=== PATIENT | female | born 1990 | race Caucasian/White ===

== ENCOUNTER 2018-08-05 05:01 | Inpatient (IN) | payer OTHER ==
[2018-08-05 05:51] VITALS: BMI 25.8
[2018-08-05] MEDS ORDERED: Fentanyl 4 mcg/Bup 0.1% Cadd 100 ML ONE (06:28)
[2018-08-05] MEDS ORDERED: Lactated Ringer's 1,000 ML IV SCH (06:31)
[2018-08-05] MEDS ORDERED: Ondansetron PF 4 MG/2 ML Vial IVP PRN ×3 (06:31→12:44)
[2018-08-05] MEDS ORDERED: Butorphanol Tartrate 1 MG/ML VIAL SLOW IVP PRN (06:31)
[2018-08-05] MEDS ORDERED: Promethazine HCl 25 MG/ML VIAL IM PRN ×2 (06:31→07:02)
[2018-08-05 06:32] LABS: Mean Corpuscular HGB CONC 33.4 g/dL (32.0-36.0); Mean Corpuscular Hemoglobin 27.8 pg (27.0-31.0); Mean Corpuscular Volume 83.3 fL (78.0-98.0); Mean Platelet Volume 10.4 fL (7.4-10.4); Platelet Count 172 thou/uL (130-400); RBC Distribution Width 12.6 % (11.5-14.5); Red Blood Cell (RBC) Count 4.66 mill/uL (4.20-5.40); White Blood Cell (WBC) Count 9.4 thou/uL (4.8-10.8)
[2018-08-05] MEDS ORDERED: Lidocaine 1% (PF) 30 ML VIAL SC PRN (06:45)
[2018-08-05] MEDS ORDERED: NS w/ Oxytocin 10 units 500 ML IV SCH ×2 (06:45)
[2018-08-05] MEDS ORDERED: Acetaminophen 325 MG TAB PO PRN (07:02)
[2018-08-05] MEDS ORDERED: ePHEDrine/0.9% NaCl/PF SYRINGE 50 mg/10 ml SLOW IVP PRN (07:02)
[2018-08-05] MEDS ORDERED: Eucerin (Mineral Oil/Petrolatum,White) 30 gm Jar TOP PRN (07:02)
[2018-08-05] MEDS ORDERED: Lactated Ringer's 500 ML IV PRN (07:02)
[2018-08-05] MEDS ORDERED: Naloxone HCl 0.4 mg/ml Vial IVP PRN ×2 (07:02)
[2018-08-05] MEDS ORDERED: diphenhydrAMINE 50 MG/ML VIAL IVP PRN (07:02)
[2018-08-05 07:13] LABS: HBSAg Index 0.36 S/CO (0-0.99); Hep B Surf Ag Non-Reactive S/CO (NonReactive); Syphilis Antibody Nonreactive (Nonreactive); Syphilis Antibody Index 0.03 S/CO (<1.00 Non-Reactive)
[2018-08-05] MEDS ORDERED: Communication Order-Pharmacy FS SCH (07:15)
[2018-08-05] MEDS ORDERED: Fentanyl 4 mcg/Bupivacaine 0.1% Cassette 100 ML EPIDURAL SCH (07:15)
--- NOTE | 2018-08-05 08:10 | PDOC.LDHP ---
Labor and Delivery H&P Chief complaint: contractions HPI: 27yo A1 at 38w0d by LMP c/o contractions since last night at 11pm. No other complaints. Current gestational age (weeks): 38 Due date: 08/19/18 Dating criteria: last menstrual period Grav: 3 Para: 1 Current complications: gestational diabetes (diet controlled) Abnormal US findings: No Past Medical History: denies Current medications: pre-aleksandr vitamins Previous surgical history: other (wrist surgery) Allergies/Adverse Reactions: Allergies Allergy/AdvReac Type Severity Reaction Status Date / Time No Known Allergies Allergy Unverified 08/05/18 05:53 Social history: none - Physical Exam Vital signs reviewed and normal: yes General: NAD Heart: RRR Lungs: CTAB Abdomen: gravid Extremeties: no edema FHT: category 1 [place] contractions every: 4-5min - Vaginal Exam cm dilated: 7 Effacement: 75% Station: -1 (arom clear) - OB Labs Blood type: O RH: positive Antibody Screen: negative HIV: negative RPR: negative HEPSAg: negative 1 hour GCT: positive 3 hour GTT: postitive GBS: negative Urine drug screen: negative Rubella: immune - Assessment L&D Assessment: term patient in labor - Plan Plan: admit to L&D, labor augmentation if indicated, informed consent obtained, anesthesia consult for pain management -: accuchecks for GDM
[2018-08-05] MEDS ORDERED: Bupivacaine/Epinephrine 0.25% 30 ML VIAL ONE (10:00)
[2018-08-05] MEDS: NS / Oxytocin 40 units/1000ml 1,000 ML IV SCH ×2 (10:20→11:00)
--- NOTE | 2018-08-05 10:22 | PDOC.OPDEL ---
OB Operative/Delivery Note Delivery Dr/Surgeon: [place] Assist: n/a Pre-Delivery Diagnosis: active labor Procedure/Post Delivery Dx: spontaneous vaginal delivery Weeks gestation: 38 Anesthesia: epidural - Findings A Sex: male - 1 min: 9 - 5 min: 9 - Additional Findings/Plan Placenta delivered: spontaneous Repaired Obstetrical Laceration: none Estimated blood loss: 100cc Post delivery plan: routine recovery
[2018-08-05] MEDS ORDERED: Milk Of Magnesia 30 ML UDCUP PO PRN (12:44)
[2018-08-05] MEDS ORDERED: NS / Oxytocin 40 units/1000ml 1,000 ML IV SCH (12:44)
[2018-08-05] MEDS ORDERED: diphenhydrAMINE 25 MG CAP PO PRN (12:44)
[2018-08-05] MEDS ORDERED: Benzocaine-Menthol 82.5 ML CAN TOP PRN (12:44)
[2018-08-05] MEDS ORDERED: Preparation H Ointment 28 GM TUBE PR PRN (12:44)
[2018-08-05] MEDS ORDERED: Bisacodyl 10 MG SUPP PR PRN (12:44)
[2018-08-05] MEDS ORDERED: HYDROcodone/Acetaminophen 5/325 mg Tablet PO PRN ×2 (12:44)
[2018-08-05] MEDS ORDERED: Lanolin Ointment 7 GM TUBE TOP PRN (12:44)
[2018-08-05] MEDS ORDERED: Adacel (T-DAP) 0.5 ML SYRINGE IM ONE (12:44)
[2018-08-05] MEDS: Ibuprofen 800 MG TAB PO SCH ×2 (13:48→21:41)
[2018-08-05] MEDS: Ferrous Sulfate 325 MG TAB PO SCH (17:08)
[2018-08-05] MEDS: Docusate Calcium (SURFAK) 240 MG CAP PO SCH (21:42)
[2018-08-06] MEDS: Ibuprofen 800 MG TAB PO SCH ×2 (05:32→10:53)
[2018-08-06 08:05] VITALS: BP 133/76; TEMP 98.3
[2018-08-06] MEDS: Docusate Calcium (SURFAK) 240 MG CAP PO SCH (08:24)
[2018-08-06] MEDS: Ferrous Sulfate 325 MG TAB PO SCH (08:24)
[2018-08-06] MEDS ORDERED: Prenatal Vitamin 1 TAB PO SCH (09:00)
--- NOTE | 2018-08-06 12:14 | PDOC.PP ---
Post Progress Note Post Day #: 1 PO intake tolerated: yes Flatus: yes Ambulation: yes Vital Signs (12 hours) Temp Pulse Resp BP Pulse Ox 08/06/18 08:44 99 08/06/18 08:04 98.3 F 82 20 133/76 97 08/06/18 05:10 97.5 F L 88 16 130/84 97 Weight Weight 170 lb - Physical Examination General: NAD Cardiovascular: RRR Respiratory: non-labored breathing Abdominal: no distention, appropriately TTP Fundus firm & at: umb-1 Neurological: no gross focal deficits Psychiatric: normal affect Result Diagrams: 08/05/18 06:21 Additional Labs: Post Labs Blood Type O POSITIVE 08/05/18 08:01 Hep Bs Antigen Non-Reactive S/CO (NonReactive) 08/05/18 06:21 - Assessment/Plan PPD1 s/p TSVD VSSAF Doing well, lochia < menses, pain controlled Rh pos RImm DC home FU 6 wk
== END 2018-08-06 16:53 | disposition home or self-care (01) | DRG 807 ==
LOC: L&D/OP 05:01 → L&D 06:13 → 3SE 14:23
PROVIDERS: ADMIT Student in an Organized Health Care Education/Training Program; ATTEND Student in an Organized Health Care Education/Training Program
PROC: 10E0XZZ Delivery of Products of Conception, External Approach (ICD-10-PCS; principal; 2018-08-05)
DX: O24.420 Gestational diabetes mellitus in childbirth, diet controlled (principal); Z37.0 Single live birth; Z3A.38 38 weeks gestation of pregnancy
CPT/HCPCS: 36415; 36416; 51702; 85027; 86780; 86850; 86900; 86901; 87340; 99285; J2001